=== PATIENT | female | born 1940 | race Caucasian/White ===

== ENCOUNTER 2020-09-14 06:20 | Inpatient (IN) | payer MEDICARE, OTHER ==
[~2020-09-14] VITALS: Ht 162.6 cm; Wt 70.0 kg
[~2020-09-14 06:20] MED LIST: LASIX40 MG PO; [UNRECOGNIZED DRUG - OTHER]
[2020-09-14 07:02] LABS: HEMOGLOBIN 15.7 gm/dl (12.3-15.3); RED BLOOD COUNT 5.68 M/UL (4.00-5.10); WHITE BLOOD COUNT 8.6 K/UL (4.5-11.0)
[2020-09-14 07:26] LABS: BUN/CREATININE RATIO 17 (0-10)
[2020-09-14] MEDS ORDERED: GLUCOTROL5 MG PO (11:28)
[2020-09-14] MEDS ORDERED: XYZAL5 MG PO (11:30)
[2020-09-14] MEDS ORDERED: GLUCOPHAGE 500500 MG PO (11:30)
[2020-09-14] MEDS ORDERED: LOPRESSOR 50 MG50 MG PO (11:32)
[2020-09-14] MEDS ORDERED: NITROSTAT 0.4100 TAB SL (11:32)
[2020-09-14] MEDS ORDERED: OMEPRAZOLE20 MG PO (11:33)
[2020-09-14] MEDS ORDERED: ZOFRAN 4 MG TAB4 MG PO (11:35)
[2020-09-14] MEDS ORDERED: ENDOCET 10-3251 EACH PO (11:36)
[2020-09-14] MEDS ORDERED: ULTRAM50 MG PO (11:37)
[2020-09-14] MEDS ORDERED: NEURONTIN800 MG PO (11:39)
[2020-09-14] MEDS ORDERED: OXYCODONE HCL15 MG PO (11:40)
[2020-09-14] MEDS ORDERED: LIPITOR TAB 2020 MG PO (11:40)
[2020-09-14] MEDS ORDERED: JANUVIA100 MG PO (11:42)
[2020-09-14] MEDS ORDERED: VENTOLIN HFA 66.7 GM INH (11:45)
[2020-09-15 03:21] LABS: HEMOGLOBIN 14.2 gm/dl (12.3-15.3); RED BLOOD COUNT 5.25 M/UL (4.00-5.10)
[2020-09-15 03:24] LABS: WHITE BLOOD COUNT 11.3 K/UL (4.5-11.0)
[2020-09-15 03:51] LABS: BUN/CREATININE RATIO 19 (0-10)
[2020-09-15 16:31] LABS: HEMOGLOBIN 14.3 gm/dl (12.3-15.3); RED BLOOD COUNT 5.27 M/UL (4.00-5.10)
[2020-09-15 16:42] LABS: WHITE BLOOD COUNT 21.3 K/UL (4.5-11.0)
[2020-09-16 02:45] LABS: HEMOGLOBIN 13.1 gm/dl (12.3-15.3); RED BLOOD COUNT 4.82 M/UL (4.00-5.10)
[2020-09-16 02:46] LABS: WHITE BLOOD COUNT 10.3 K/UL (4.5-11.0)
[2020-09-17 02:45] LABS: HEMOGLOBIN 11.7 gm/dl (12.3-15.3); RED BLOOD COUNT 4.48 M/UL (4.00-5.10)
[2020-09-17 02:50] LABS: WHITE BLOOD COUNT 13.5 K/UL (4.5-11.0)
[2020-09-18 14:12] LABS: HEMOGLOBIN 12.1 gm/dl (12.3-15.3); RED BLOOD COUNT 4.44 M/UL (4.00-5.10); WHITE BLOOD COUNT 10.4 K/UL (4.5-11.0)
[2020-09-19 06:06] LABS: HEMOGLOBIN 11.8 gm/dl (12.3-15.3); RED BLOOD COUNT 4.36 M/UL (4.00-5.10); WHITE BLOOD COUNT 8.5 K/UL (4.5-11.0)
[2020-09-20 03:53] LABS: RED BLOOD COUNT 4.08 M/UL (4.00-5.10); WHITE BLOOD COUNT 8.7 K/UL (4.5-11.0)
[2020-09-20 04:13] LABS: BUN/CREATININE RATIO 19 (0-10)
[2020-09-21 03:59] LABS: HEMOGLOBIN 11.5 gm/dl (12.3-15.3); RED BLOOD COUNT 4.28 M/UL (4.00-5.10)
[2020-09-21 04:40] LABS: BUN/CREATININE RATIO 19 (0-10)
[2020-09-21] MEDS ORDERED: GABAPENTIN300 MG PO (08:58)
[2020-09-21] MEDS ORDERED: PERCOCET 5/325 T1 EA PO (08:58)
[2020-09-21] MEDS ORDERED: LANTUS INS100 UTS/M1 SC (08:58)
[2020-09-21] MEDS ORDERED: ATORVASTATIN CA20 MG PO (08:58)
[2020-09-21] MEDS ORDERED: DULERA 200 MCG8.8 GM INH (08:58)
[2020-09-21] MEDS ORDERED: ELIQUIS 5 MG TAB5 MG PO (08:58)
[2020-09-21] MEDS ORDERED: HUMALOG 10100 UNITS/ SC (08:58)
== END 2020-09-21 17:10 | DRG 522 ==
LOC: ER1 06:20 → CDU 08:19 → PROG CARE 08:19 → MED SURG 4 08:19 → PROG CARE 17:32 → MED SURG 4 09-17 18:33
PROVIDERS: Family Medicine; Internal Medicine; Orthopaedic Surgery; Physician Assistant; ADMIT Internal Medicine
PROC: B24BZZ4 Ultrasonography of Heart with Aorta, Transesophageal (ICD-10-PCS; 2020-09-14)
PROC: 0SRS0JZ Replacement of Left Hip Joint, Femoral Surface with Synthetic Substitute, Open Approach (ICD-10-PCS; principal; 2020-09-15 14:15)
DX: S72.002A Fracture of unspecified part of neck of left femur, initial encounter for closed fracture (principal); N17.9 Acute kidney failure, unspecified; E87.1 Hypo-osmolality and hyponatremia; J96.11 Chronic respiratory failure with hypoxia; I38 Endocarditis, valve unspecified; I48.20 Chronic atrial fibrillation, unspecified; I16.9 Hypertensive crisis, unspecified; I42.9 Cardiomyopathy, unspecified; I50.22 Chronic systolic (congestive) heart failure; J98.11 Atelectasis; Z20.822 Contact with and (suspected) exposure to COVID-19; E11.9 Type 2 diabetes mellitus without complications; J44.9 Chronic obstructive pulmonary disease, unspecified; E78.5 Hyperlipidemia, unspecified; I11.0 Hypertensive heart disease with heart failure; R53.81 Other malaise; W01.0XXA Fall on same level from slipping, tripping and stumbling without subsequent striking against object, initial encounter; I16.0 Hypertensive urgency; E87.6 Hypokalemia; E86.0 Dehydration; Z79.01 Long term (current) use of anticoagulants; Y92.9 Unspecified place or not applicable; Z90.49 Acquired absence of other specified parts of digestive tract; Z90.710 Acquired absence of both cervix and uterus; Z88.6 Allergy status to analgesic agent; Z88.1 Allergy status to other antibiotic agents; Z88.0 Allergy status to penicillin; Z88.2 Allergy status to sulfonamides; Z88.8 Allergy status to other drugs, medicaments and biological substances; Z87.891 Personal history of nicotine dependence; Z82.49 Family history of ischemic heart disease and other diseases of the circulatory system; Z83.3 Family history of diabetes mellitus; Z80.9 Family history of malignant neoplasm, unspecified
CPT/HCPCS: ECHO; 36415; 36600; 71045; 72170; 73501; 73502; 73552; 80048; 80053; 81001; 82550; 82553; 82803; 82962; 83874; 84484; 85025; 85027; 85610; 86850; 86900; 86901; 93005; 93306; 94640; 94664; 94760; 96374; 96375; 97116-GP-CQ; 97161; 97166; 97530-GP-CQ; 97535; 99285; C1776; J0360; J1100; J1170; J1650; J2001; J2270; J2405; J2704; J2795; J3010; J3370; J7070; J7120; U0002

== ENCOUNTER 2021-02-11 13:47 | Inpatient (IN) | payer MEDICARE, OTHER ==
[~2021-02-11] VITALS: Ht 162.6 cm; Wt 67.4 kg
[~2021-02-11 13:47] MED LIST changes: +ATORVASTATIN CA20 MG PO; +DULERA 200 MCG8.8 GM INH; +ELIQUIS 5 MG TAB5 MG PO; +ENDOCET 10-3251 EACH PO; +GABAPENTIN300 MG PO; +GLUCOTROL5 MG PO; +HUMALOG 10100 UNITS/ SC; +JANUVIA100 MG PO; +LANTUS INS100 UTS/M1 SC; +LIPITOR TAB 2020 MG PO; +LOPRESSOR 50 MG50 MG PO; +NEURONTIN800 MG PO; +NITROSTAT 0.4100 TAB SL; +OMEPRAZOLE20 MG PO; +OXYCODONE HCL15 MG PO; +PERCOCET 5/325 T1 EA PO; +ULTRAM50 MG PO; +VENTOLIN HFA 66.7 GM INH; +XYZAL5 MG PO; +ZOFRAN 4 MG TAB4 MG PO
[2021-02-11 15:02] LABS: HEMOGLOBIN 15.7 gm/dl (12.3-15.3); RED BLOOD COUNT 5.83 M/UL (4.00-5.10); WHITE BLOOD COUNT 7.4 K/UL (4.5-11.0)
[2021-02-11 15:22] LABS: BUN/CREATININE RATIO 15 (0-10)
[2021-02-12] MEDS ORDERED: GABAPENTIN300 MG PO (11:15)
[2021-02-12] MEDS ORDERED: ENDOCET 10-3251 EACH PO (11:16)
[2021-02-12] MEDS ORDERED: GLUCOTROL5 MG PO (11:20)
[2021-02-12] MEDS ORDERED: METFORMIN HCL1000 MG PO (11:30)
[2021-02-14] MEDS ORDERED: AMLODIPINE BESYL5 MG PO (15:37)
[2021-02-14] MEDS ORDERED: ELIQUIS 5 MG TAB5 MG PO (15:37)
[2021-02-14] MEDS ORDERED: ASPIRIN EC81 MG PO (15:37)
[2021-02-15] MEDS ORDERED: ATORVASTATIN CA10 MG PO (12:25)
[2021-02-15] MEDS ORDERED: COZAAR 50MG TAB50 MG PO (12:25)
[2021-02-15] MEDS ORDERED: CARVEDILOL3.125 MG PO (12:25)
[2021-02-17 19:09] LABS: 25-HYDROXY, VITAMIN D 23 ng/mL (.); 25-HYDROXY, VITAMIN D-2 <1.0 ng/mL (.); 25-HYDROXY, VITAMIN D-3 23 ng/mL (.)
== END 2021-02-15 13:09 | disposition home or self-care (01) | DRG 65 ==
LOC: ER1 13:47 → PROG CARE 20:55 → CDU 20:55 → PROG CARE 23:50
PROVIDERS: Family Medicine; Internal Medicine; ADMIT Internal Medicine
DX: I63.411 Cerebral infarction due to embolism of right middle cerebral artery (principal); J96.11 Chronic respiratory failure with hypoxia; G93.49 Other encephalopathy; E87.1 Hypo-osmolality and hyponatremia; I48.20 Chronic atrial fibrillation, unspecified; E44.0 Moderate protein-calorie malnutrition; I50.22 Chronic systolic (congestive) heart failure; I43 Cardiomyopathy in diseases classified elsewhere; I48.0 Paroxysmal atrial fibrillation; J44.9 Chronic obstructive pulmonary disease, unspecified; I48.91 Unspecified atrial fibrillation; E78.5 Hyperlipidemia, unspecified; G89.29 Other chronic pain; E11.40 Type 2 diabetes mellitus with diabetic neuropathy, unspecified; Z96.649 Presence of unspecified artificial hip joint; R25.1 Tremor, unspecified; F03.90 Unspecified dementia, unspecified severity, without behavioral disturbance, psychotic disturbance, mood disturbance, and anxiety; I25.10 Atherosclerotic heart disease of native coronary artery without angina pectoris; R45.1 Restlessness and agitation; I11.0 Hypertensive heart disease with heart failure; Z90.49 Acquired absence of other specified parts of digestive tract; Z90.710 Acquired absence of both cervix and uterus; Z98.890 Other specified postprocedural states; Z87.891 Personal history of nicotine dependence; Z79.82 Long term (current) use of aspirin; Z79.899 Other long term (current) drug therapy; Z88.0 Allergy status to penicillin; Z88.2 Allergy status to sulfonamides; Z88.5 Allergy status to narcotic agent; Z88.8 Allergy status to other drugs, medicaments and biological substances; Z82.49 Family history of ischemic heart disease and other diseases of the circulatory system
CPT/HCPCS: ECHO; 36415; 70450; 70551; 78452; 80048; 80053; 80061; 81001; 82306; 82550; 82553; 82607; 82746; 82962; 83036; 83874; 83880; 84439; 84443; 84484; 85025; 86140; 87086; 92610; 93005; 93017; 93306; 93880; 94640; 94664; 97116; 97116-GP-CQ; 97161; 97165; 99285; A9502; J1650; J2270; J2405; J2785; J7030; U0002

== ENCOUNTER 2021-07-21 21:02 | Emergency (ER) | payer MEDICARE ==
[~2021-07-21 21:02] MED LIST changes: +AMLODIPINE BESYL5 MG PO; +ASPIRIN EC81 MG PO; +ATORVASTATIN CA10 MG PO; +CARVEDILOL3.125 MG PO; +COZAAR 50MG TAB50 MG PO; +METFORMIN HCL1000 MG PO
[2021-07-21 21:55] LABS: HEMOGLOBIN 14.1 gm/dl (12.3-15.3); RED BLOOD COUNT 5.52 M/UL (4.00-5.10); WHITE BLOOD COUNT 7.8 K/UL (4.5-11.0)
[2021-07-21] MEDS ORDERED: METOPROLOL TART25 MG PO (23:06)
== END 2021-07-21 23:42 | disposition home or self-care (01) ==
LOC: ER1 21:02
PROVIDERS: Emergency Medicine
DX: I10 Essential (primary) hypertension (principal); E11.9 Type 2 diabetes mellitus without complications; Z88.0 Allergy status to penicillin
CPT/HCPCS: 80053; 81001; 83735; 85025; 93005; 96374; 99284; J0360

== ENCOUNTER 2021-12-28 10:33 | Emergency (ER) | payer MEDICARE, OTHER ==
[~2021-12-28 10:33] MED LIST changes: +METOPROLOL TART25 MG PO
[2021-12-28 11:32] LABS: RED BLOOD COUNT 5.68 M/UL (4.00-5.10); WHITE BLOOD COUNT 6.7 K/UL (4.5-11.0)
== END 2021-12-28 18:43 | disposition home or self-care (01) ==
LOC: ER1 10:33
PROVIDERS: Physician Assistant Medical
DX: I10 Essential (primary) hypertension (principal); E87.1 Hypo-osmolality and hyponatremia; E11.65 Type 2 diabetes mellitus with hyperglycemia; I48.91 Unspecified atrial fibrillation; J44.9 Chronic obstructive pulmonary disease, unspecified; Z79.01 Long term (current) use of anticoagulants; Z88.0 Allergy status to penicillin; Z90.710 Acquired absence of both cervix and uterus
CPT/HCPCS: 71045; 80053; 81001; 82550; 82553; 84484; 85025; 93005; 96361; 96374; 96375; 96376; 99284; J0360